=== PATIENT | female | born 1945 | race Caucasian/White ===

== ENCOUNTER 2024-03-27 18:25 | Inpatient (IN) | payer MEDICARE ==
[2024-03-27] MEDS ORDERED: dilTIAZem 25 MG/5 ML VIAL ONE (19:14)
[2024-03-27] MEDS ORDERED: Magnesium 2 GM/50 ML BAG (IN WATER) ONE (19:15)
[2024-03-27 19:20] LABS: #Basophils 0.09 10x3/uL (0.0-0.2); %Eosinophils 7.2 % (0.0-10.0); %Monocytes 11.3 % (0.0-10.0); %Neutrophils 53.3 % (42.0-75.0); Hematocrit 42.9 % (36.0-47.0); Hemoglobin 14.1 g/dL (12.0-16.0); Mean Corpuscular HGB CONC 32.9 g/dL (32.0-36.0); Mean Corpuscular Hemoglobin 29.7 pg (27.0-31.0); Mean Corpuscular Volume 90.5 fL (78.0-98.0); Mean Platelet Volume 10.8 fL (7.4-10.4); Platelet Count 214 10x3/uL (130-400); RBC Distribution Width 13.5 % (11.5-14.5); Red Blood Cell (RBC) Count 4.74 mill/uL (4.20-5.40)
[2024-03-27 19:42] LABS: Troponin I 0.021 ng/mL (< 0.028)
[2024-03-27 19:43] LABS: ALT (SGPT) 21 U/L (8-55); AST (SGOT) 17 U/L (5-34); Albumin 3.5 g/dL (3.4-4.8); Alkaline Phosphatase 156 U/L (40-110); Anion Gap 19 mmol/L (10-20); BUN (Urea Nitrogen) 15 mg/dL (9.8-20.1); Bilirubin, Total 0.3 mg/dL (0.2-1.2); Calc. Creatinine Clearance 0 mL/min (70-130); Calcium 8.6 mg/dL (7.8-10.44); Carbon Dioxide 20 mmol/L (23-31); Chloride 106 mmol/L (98-107); Estimated GFR 69; Glucose 144 mg/dL (83-110); Potassium 3.5 mmol/L (3.5-5.1); Protein, Total 6.5 g/dL (5.8-8.1); Sodium 141 mmol/L (136-145)
[2024-03-27 19:46] LABS: Bacteria/HPF None Seen HPF (None Seen); Bilirubin Negative (Negative); Blood, Urine Negative (Negative); CAUTI Indications for Culture Alt mental st,lethar; Clarity Clear (Clear); Glucose, Urine (Dipstick) Normal (Negative); Ketone, Urine Negative (Negative); Leukocyte 25 Leu/uL (Negative); Nitrite Negative (Negative); Protein, Urine (Dipstick) Negative (Neg-Trace); RBC/HPF 0-3 HPF (0-3); Specific Gravity, Urine 1.003 (1.002-1.036); Squamous Epithelial None Seen HPF (0-3); Urobilinogen Normal mg/dL (Less than 2); WBC/HPF 0-3 HPF (0-3); pH, Urine 5.5 (5.0-9.0)
[2024-03-27 19:49] LABS: Urine Culture Reflex No No
[2024-03-27 20:07] LABS: Free T4 (Free Thyroxine) 1.18 ng/dL (0.70-1.48); Thyroid Stimulating Hormone 3.3136 uIU/mL (0.35-4.94)
[2024-03-27] MEDS ORDERED: Diltiazem HCl/D5W 125 ML ONE (20:11)
[2024-03-27] MEDS ORDERED: Enoxaparin 80 MG (0.8 mL) SYRINGE ONE (21:08)
[2024-03-27] MEDS ORDERED: Metoprolol Tartrate 5 MG (5 mL) VIAL ONE (21:09)
[2024-03-27] MEDS ORDERED: Acetaminophen 325 MG TAB PO PRN (21:19)
[2024-03-27] MEDS ORDERED: Ondansetron PF 4 MG/2 ML Vial IVP PRN (21:19)
[2024-03-27] MEDS ORDERED: Carvedilol 6.25 MG TAB PO SCH (21:30)
[2024-03-27] MEDS ORDERED: dilTIAZem 125 MG in Sodium Chloride 0.9% 100 ML IVPB SCH (22:00)
[2024-03-27] MEDS ORDERED: Carvedilol 6.25 MG TAB ONE (22:28)
[2024-03-28 00:10] VITALS: BMI 30.6
[2024-03-28 04:47] LABS: #Basophils 0.08 10x3/uL (0.0-0.2); %Basophils 0.9 % (0.0-1.0); %Eosinophils 7.1 % (0.0-10.0); %Lymphocytes 25.6 % (21.0-51.0); %Monocytes 11.7 % (0.0-10.0); %Neutrophils 54.4 % (42.0-75.0); Hematocrit 39.6 % (36.0-47.0); Hemoglobin 12.9 g/dL (12.0-16.0); Mean Corpuscular HGB CONC 32.6 g/dL (32.0-36.0); Mean Corpuscular Hemoglobin 29.8 pg (27.0-31.0); Mean Corpuscular Volume 91.5 fL (78.0-98.0); Platelet Count 211 10x3/uL (130-400); RBC Distribution Width 13.7 % (11.5-14.5); Red Blood Cell (RBC) Count 4.33 mill/uL (4.20-5.40)
[2024-03-28 05:03] LABS: Anion Gap 13 mmol/L (10-20); BUN (Urea Nitrogen) 11 mg/dL (9.8-20.1); Calc. Creatinine Clearance 76 mL/min (70-130); Calcium 8.3 mg/dL (7.8-10.44); Carbon Dioxide 23 mmol/L (23-31); Chloride 112 mmol/L (98-107); Estimated GFR 76; Glucose 114 mg/dL (83-110); Magnesium 2.3 mg/dL (1.6-2.6); Potassium 3.6 mmol/L (3.5-5.1); Sodium 144 mmol/L (136-145)
[2024-03-28] MEDS: Levothyroxine Sodium 100 MCG TAB PO SCH (05:56)
[2024-03-28] MEDS: Diltiazem HCl/D5W 125 MG in Premix 1 BAG IVPB SCH (08:08)
[2024-03-28] MEDS: Enoxaparin 80 MG (0.8 mL) SYRINGE SC SCH (09:51)
[2024-03-28] MEDS: Melatonin 3 MG TAB PO PRN (20:59)
[2024-03-28] MEDS: Carvedilol 6.25 MG TAB PO SCH (20:59)
[2024-03-28] MEDS: Losartan 25 MG TAB PO SCH (21:00)
[2024-03-28] MEDS: Flecainide 50 MG TAB PO SCH (21:00)
[2024-03-29 04:56] LABS: #Basophils 0.06 10x3/uL (0.0-0.2); %Basophils 0.8 % (0.0-1.0); %Eosinophils 7.7 % (0.0-10.0); %Lymphocytes 25.1 % (21.0-51.0); %Monocytes 12.5 % (0.0-10.0); %Neutrophils 53.6 % (42.0-75.0); Hematocrit 40.6 % (36.0-47.0); Hemoglobin 13.1 g/dL (12.0-16.0); Mean Corpuscular HGB CONC 32.3 g/dL (32.0-36.0); Mean Corpuscular Volume 89.8 fL (78.0-98.0); Mean Platelet Volume 11.2 fL (7.4-10.4); Platelet Count 195 10x3/uL (130-400); RBC Distribution Width 13.9 % (11.5-14.5); Red Blood Cell (RBC) Count 4.52 mill/uL (4.20-5.40)
[2024-03-29 05:17] LABS: Anion Gap 15 mmol/L (10-20); BUN (Urea Nitrogen) 16 mg/dL (9.8-20.1); Calc. Creatinine Clearance 70 mL/min (70-130); Calcium 8.7 mg/dL (7.8-10.44); Carbon Dioxide 22 mmol/L (23-31); Chloride 109 mmol/L (98-107); Estimated GFR 69; Glucose 103 mg/dL (83-110); Magnesium 2.1 mg/dL (1.6-2.6); Potassium 3.9 mmol/L (3.5-5.1); Sodium 142 mmol/L (136-145)
[2024-03-29] MEDS: Diltiazem HCl/D5W 125 MG in Premix 1 BAG IVPB SCH (07:18)
[2024-03-29 16:43] VITALS: BP 128/78; TEMP 98.4
[2024-03-29] MEDS ORDERED: Apixaban 5 MG TAB PO SCH (21:00)
== END 2024-03-29 18:30 | disposition home or self-care (01) | DRG 310 ==
LOC: ERS 18:25 → 2NO 20:49 → INTOOBSV 20:49 → OBSVTOIN 03-28 17:27
PROVIDERS: ADMIT Internal Medicine; ATTEND Student in an Organized Health Care Education/Training Program
DX: I48.91 Unspecified atrial fibrillation (principal); I10 Essential (primary) hypertension; E03.9 Hypothyroidism, unspecified; I35.8 Other nonrheumatic aortic valve disorders; Z91.041 Radiographic dye allergy status; Z79.899 Other long term (current) drug therapy; Z98.890 Other specified postprocedural states; Z87.891 Personal history of nicotine dependence; Z79.01 Long term (current) use of anticoagulants
CPT/HCPCS: 36415; 71045; 80048; 80053; 81001; 83735; 84439; 84443; 84484; 85025; 85379; 87635; 93005; 93306; 96365; 96372; 96375; 96376; G0378; J1650; J3475